=== PATIENT | female | born 1985 | race Caucasian/White ===

== ENCOUNTER 2016-05-25 09:00 | Outpatient (RCR) | payer MEDICAID ==
[~2016-05-25 09:00] MED LIST: ASPI-84; CYCL10TA9 PO; LEVO100T79 PO; LEVO125T6; MULT-608; OXYC-197 PO; PRD20T PO; TRAM-42 PO; TRAM50TA2 PO; TRM50T PO
[2016-05-25 09:15] LABS: BASOPHILS % (AUTO) 0 % (0-10); EOSINOPHILS # (AUTO) 0.1 10^3/uL (0.0-0.3); EOSINOPHILS % (AUTO) 2 % (0-10); LYMPHOCYTES # (AUTO) 1.3 X 10^3 (1.0-4.0); LYMPHOCYTES % (AUTO) 17 % (12-44); MEAN CORPUSCULAR HEMOGLOBIN 24 PG (25-34); MEAN CORPUSCULAR HGB CONC 33 G/DL (32-36); MEAN CORPUSCULAR VOLUME 74 FL (80-99); MEAN PLATELET VOLUME 11.1 FL (7.4-10.4); MONOCYTES # (AUTO) 0.5 X 10^3 (0.0-1.0); MONOCYTES % (AUTO) 6 % (0-12); NEUTROPHILS # (AUTO) 5.8 X 10^3 (1.8-7.8); NEUTROPHILS % (AUTO) 75 % (42-75); PLATELET COUNT 228 10^3/uL (130-400); RED BLOOD COUNT 6.76 10^6/uL (4.35-5.85); RED CELL DISTRIBUTION WIDTH 21.3 % (10.0-14.5); WHITE BLOOD COUNT 7.7 10^3/uL (4.3-11.0)
[2016-05-25 09:46] LABS: ALANINE AMINOTRANSFERASE 15 U/L (0-55); ALBUMIN 4.2 G/DL (3.2-4.5); ANION GAP 11 MMOL/L (5-14); ASPARTATE AMINO TRANSFERASE 13 U/L (5-34); BILIRUBIN,TOTAL 0.3 MG/DL (0.1-1.0); BLOOD UREA NITROGEN 6 MG/DL (7-18); BUN/CREATININE RATIO 6; CALCIUM 9.5 MG/DL (8.5-10.1); CARBON DIOXIDE 22 MMOL/L (21-32); CHLORIDE 104 MMOL/L (98-107); CREATININE SERUM 0.94 MG/DL (0.60-1.30); GFR ESTIMATED > 60; GLUCOSE 105 MG/DL (70-105); POTASSIUM 3.9 MMOL/L (3.6-5.0); SODIUM 137 MMOL/L (135-145); TOTAL PROTEIN 7.1 G/DL (6.4-8.2)
[2016-05-25 10:06] LABS: THYROID STIMULATING HORMONE 0.73 UIU/ML (0.35-4.94)
== END 2016-06-02 | disposition home or self-care (01) ==
LOC: ONC 09:00
PROVIDERS: ATTEND Internal Medicine Hematology & Oncology
DX: D45 Polycythemia vera (principal); E03.9 Hypothyroidism, unspecified; F17.210 Nicotine dependence, cigarettes, uncomplicated; Z79.899 Other long term (current) drug therapy
CPT/HCPCS: 36415; 80053; 82728; 84443; 85025; 99195; 99213

== ENCOUNTER 2016-07-20 14:09 | Outpatient (RCR) | payer MEDICAID ==
[2016-07-20 15:14] LABS: BASOPHILS % (AUTO) 0 % (0-10); EOSINOPHILS # (AUTO) 0.1 10^3/uL (0.0-0.3); EOSINOPHILS % (AUTO) 1 % (0-10); LYMPHOCYTES # (AUTO) 1.5 X 10^3 (1.0-4.0); LYMPHOCYTES % (AUTO) 15 % (12-44); MEAN CORPUSCULAR HEMOGLOBIN 23 PG (25-34); MEAN CORPUSCULAR HGB CONC 32 G/DL (32-36); MEAN CORPUSCULAR VOLUME 73 FL (80-99); MEAN PLATELET VOLUME 10.8 FL (7.4-10.4); MONOCYTES # (AUTO) 0.6 X 10^3 (0.0-1.0); MONOCYTES % (AUTO) 6 % (0-12); NEUTROPHILS # (AUTO) 7.9 X 10^3 (1.8-7.8); NEUTROPHILS % (AUTO) 78 % (42-75); PLATELET COUNT 240 10^3/uL (130-400); RED BLOOD COUNT 6.18 10^6/uL (4.35-5.85); RED CELL DISTRIBUTION WIDTH 19.8 % (10.0-14.5); WHITE BLOOD COUNT 10.1 10^3/uL (4.3-11.0)
[2016-08-31] MEDS ORDERED: OXYC-197 PO (09:01)
== END 2016-10-18 | disposition home or self-care (01) ==
LOC: ONC 14:09
PROVIDERS: ATTEND Internal Medicine Hematology & Oncology
DX: D45 Polycythemia vera (principal); E03.9 Hypothyroidism, unspecified; F17.210 Nicotine dependence, cigarettes, uncomplicated; Z79.899 Other long term (current) drug therapy
CPT/HCPCS: 36415; 84443; 85025; 99195

== ENCOUNTER 2016-08-31 07:48 | Emergency (ER) | payer MEDICAID ==
[~2016-08-31] VITALS: Ht 170.2 cm; Wt 78.9 kg
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
--- NOTE | 2016-08-31 09:00 | Diagnostic Imaging Report ---
INDICATION: Injury with pain FINDINGS: There is an obliquely oriented fracture through the mid to proximal shaft of the proximal phalanx of the third toe, it showed no convincing extension into the articular surface. No substantial angulation or displacement. Its middle and distal phalanx as well as metatarsal intact. The remaining osseous structures intact. IMPRESSION: Obliquely oriented and apparently extra-articular nondisplaced proximal phalanx fracture third toe. Dictated by: Dictated on workstation # [id number]
[2016-08-31] MEDS ORDERED: OXYC-197 PO (09:01)
[2016-08-31 09:10] VITALS: BP 141/96
== END 2016-08-31 09:13 | disposition home or self-care (01) ==
LOC: EDUNIT# 07:48 → ER 07:51
DX: S92.414A Nondisplaced fracture of proximal phalanx of right great toe, initial encounter for closed fracture (principal); F17.210 Nicotine dependence, cigarettes, uncomplicated; W21.9XXA Striking against or struck by unspecified sports equipment, initial encounter; Y99.8 Other external cause status
CPT/HCPCS: 73660; 99283

== ENCOUNTER 2016-12-30 08:06 | Emergency (ER) | payer MEDICAID ==
[~2016-12-30] VITALS: Ht 170.2 cm; Wt 78.9 kg
[2016-12-30 09:40] LABS: BASOPHILS % (AUTO) 0 % (0-10); EOSINOPHILS # (AUTO) 0.1 10^3/uL (0.0-0.3); EOSINOPHILS % (AUTO) 1 % (0-10); LYMPHOCYTES # (AUTO) 1.4 X 10^3 (1.0-4.0); LYMPHOCYTES % (AUTO) 10 % (12-44); MEAN CORPUSCULAR HEMOGLOBIN 23 PG (25-34); MEAN CORPUSCULAR HGB CONC 32 G/DL (32-36); MEAN CORPUSCULAR VOLUME 72 FL (80-99); MEAN PLATELET VOLUME 10.9 FL (7.4-10.4); MONOCYTES # (AUTO) 0.7 X 10^3 (0.0-1.0); MONOCYTES % (AUTO) 5 % (0-12); NEUTROPHILS % (AUTO) 85 % (42-75); PLATELET COUNT 219 10^3/uL (130-400); RED BLOOD COUNT 6.58 10^6/uL (4.35-5.85); WHITE BLOOD COUNT 14.3 10^3/uL (4.3-11.0)
[2016-12-30 10:02] LABS: ALANINE AMINOTRANSFERASE 16 U/L (0-55); ANION GAP 11 MMOL/L (5-14); ASPARTATE AMINO TRANSFERASE 21 U/L (5-34); BILIRUBIN,TOTAL 0.4 MG/DL (0.1-1.0); BLOOD UREA NITROGEN 6 MG/DL (7-18); BUN/CREATININE RATIO 8; CALCIUM 9.2 MG/DL (8.5-10.1); CARBON DIOXIDE 19 MMOL/L (21-32); CHLORIDE 106 MMOL/L (98-107); CREATININE SERUM 0.74 MG/DL (0.60-1.30); GFR ESTIMATED > 60; GLUCOSE 102 MG/DL (70-105); POTASSIUM 4.5 MMOL/L (3.6-5.0); SODIUM 136 MMOL/L (135-145); TOTAL PROTEIN 7.2 GM/DL (6.4-8.2)
[2016-12-30 10:09] LABS: BAND NEUTROPHILS 0 %; BASOPHILS % (MANUAL) 0 %; EOSINOPHILS % (MANUAL) 1 %; LYMPHOCYTES % (MANUAL) 8 %; NEUTROPHILS % (MANUAL) 81 %; REACTIVE LYMPHOCYTES 8 %
[2016-12-30 10:10] LABS: ANISOCYTOSIS MODERATE; POIKILOCYTOSIS MODERATE; SPHEROCYTES SLIGHT; STOMATOCYTES SLIGHT
[2016-12-30 10:11] LABS: MICROCYTOSIS MODERATE
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
[2016-12-30 10:58] LABS: BILIRUBIN,URINE NEGATIVE (NEGATIVE); KETONES,URINE NEGATIVE (NEGATIVE); LEUKOCYTE ESTERASE ,URINE 1+ (NEGATIVE); NITRITE,URINE NEGATIVE (NEGATIVE); PH,URINE 6 (5-9); PROTEIN,URINE NEGATIVE (NEGATIVE); UROBILINOGEN,URINE NORMAL (NORMAL)
--- NOTE | 2016-12-30 11:21 | Diagnostic Imaging Report ---
EXAM: LUMBAR SPINE - 2-3 VIEWS INDICATION: Low back pain. COMPARISON: Lumbar spine radiographs 09/24/2014. FINDINGS: There are 5 lumbar type vertebral bodies. Normal alignment. Vertebral body heights are maintained. No fractures. Cholecystectomy clips. No significant change. IMPRESSION: Negative lumbar spine radiographs. Dictated by: Dictated on workstation # [id number]
[2016-12-30 11:34] LABS: SQUAMOUS EPITHELIAL CELL,UR >50 /HPF
[2016-12-30] MEDS ORDERED: fLEXERIL (12:09)
[2016-12-30] MEDS ORDERED: NAPR-1070 PO (12:09)
[2016-12-30] MEDS ORDERED: KETOROLAC 60 MG/2 ML VIAL IM ONE (12:15)
[2016-12-30 12:28] VITALS: BP 129/69
== END 2016-12-30 12:29 | disposition home or self-care (01) ==
LOC: EDUNIT# 08:06 → ER 08:08
DX: M62.830 Muscle spasm of back (principal); F41.9 Anxiety disorder, unspecified; F32.9 Major depressive disorder, single episode, unspecified; E03.9 Hypothyroidism, unspecified; Z86.2 Personal history of diseases of the blood and blood-forming organs and certain disorders involving the immune mechanism; Z87.59 Personal history of other complications of pregnancy, childbirth and the puerperium; Z90.89 Acquired absence of other organs
CPT/HCPCS: 36415; 51701; 72100; 80053; 81000; 85007; 85027; 96372; 99284

== ENCOUNTER 2017-06-20 14:35 | Outpatient (RCR) | payer MEDICAID ==
[2017-04-12 10:53] LABS: BASOPHILS % (AUTO) 0 % (0-10); EOSINOPHILS # (AUTO) 0.2 10^3/uL (0.0-0.3); EOSINOPHILS % (AUTO) 3 % (0-10); HEMATOCRIT 49 % (35-52); HEMOGLOBIN 16.1 G/DL (11.5-16.0); LYMPHOCYTES # (AUTO) 1.4 X 10^3 (1.0-4.0); LYMPHOCYTES % (AUTO) 20 % (12-44); MEAN CORPUSCULAR HEMOGLOBIN 25 PG (25-34); MEAN CORPUSCULAR HGB CONC 33 G/DL (32-36); MEAN CORPUSCULAR VOLUME 76 FL (80-99); MEAN PLATELET VOLUME 10.5 FL (7.4-10.4); MONOCYTES # (AUTO) 0.4 X 10^3 (0.0-1.0); MONOCYTES % (AUTO) 5 % (0-12); NEUTROPHILS % (AUTO) 71 % (42-75); PLATELET COUNT 216 10^3/uL (130-400); RED BLOOD COUNT 6.39 10^6/uL (4.35-5.85)
[2017-04-12 11:13] LABS: ALANINE AMINOTRANSFERASE 25 U/L (0-55); ALBUMIN 3.9 GM/DL (3.2-4.5); ALKALINE PHOSPHATASE 62 U/L (40-136); BILIRUBIN,TOTAL 0.3 MG/DL (0.1-1.0); BUN/CREATININE RATIO 11; CALCIUM 9.3 MG/DL (8.5-10.1); CARBON DIOXIDE 24 MMOL/L (21-32); CHLORIDE 105 MMOL/L (98-107); CREATININE SERUM 0.83 MG/DL (0.60-1.30); GFR ESTIMATED > 60; GLUCOSE 115 MG/DL (70-105); POTASSIUM 4.4 MMOL/L (3.6-5.0); SODIUM 137 MMOL/L (135-145); TOTAL PROTEIN 7.3 GM/DL (6.4-8.2)
[~2017-06-20 14:35] MED LIST changes: +NAPR-1070 PO; +fLEXERIL
[2017-06-20 14:56] LABS: BASOPHILS % (AUTO) 0 % (0-10); EOSINOPHILS # (AUTO) 0.2 10^3/uL (0.0-0.3); EOSINOPHILS % (AUTO) 3 % (0-10); HEMATOCRIT 48 % (35-52); HEMOGLOBIN 15.7 G/DL (11.5-16.0); LYMPHOCYTES # (AUTO) 1.9 X 10^3 (1.0-4.0); LYMPHOCYTES % (AUTO) 27 % (12-44); MEAN CORPUSCULAR HEMOGLOBIN 26 PG (25-34); MEAN CORPUSCULAR HGB CONC 33 G/DL (32-36); MEAN CORPUSCULAR VOLUME 78 FL (80-99); MEAN PLATELET VOLUME 11.2 FL (7.4-10.4); MONOCYTES # (AUTO) 0.5 X 10^3 (0.0-1.0); MONOCYTES % (AUTO) 7 % (0-12); NEUTROPHILS # (AUTO) 4.6 X 10^3 (1.8-7.8); NEUTROPHILS % (AUTO) 64 % (42-75); PLATELET COUNT 247 10^3/uL (130-400); RED BLOOD COUNT 6.12 10^6/uL (4.35-5.85); RED CELL DISTRIBUTION WIDTH 18.5 % (10.0-14.5); WHITE BLOOD COUNT 7.1 10^3/uL (4.3-11.0)
[2017-06-20 15:13] LABS: ALANINE AMINOTRANSFERASE 25 U/L (0-55); ALBUMIN 4.2 GM/DL (3.2-4.5); ALKALINE PHOSPHATASE 70 U/L (40-136); BILIRUBIN,TOTAL 0.2 MG/DL (0.1-1.0); BUN/CREATININE RATIO 8; CALCIUM 9.4 MG/DL (8.5-10.1); CARBON DIOXIDE 20 MMOL/L (21-32); CHLORIDE 107 MMOL/L (98-107); CREATININE SERUM 0.84 MG/DL (0.60-1.30); GFR ESTIMATED > 60; GLUCOSE 117 MG/DL (70-105); POTASSIUM 3.8 MMOL/L (3.6-5.0); SODIUM 138 MMOL/L (135-145); TOTAL PROTEIN 7.5 GM/DL (6.4-8.2)
== END 2017-07-11 | disposition home or self-care (01) ==
LOC: ONC 14:35
PROVIDERS: ATTEND Internal Medicine Hematology & Oncology
DX: D45 Polycythemia vera (principal); E03.9 Hypothyroidism, unspecified; F17.210 Nicotine dependence, cigarettes, uncomplicated; Z79.899 Other long term (current) drug therapy
CPT/HCPCS: 36415; 80053; 82728; 84443; 85025; 99195

== ENCOUNTER 2018-01-03 10:01 | Outpatient (RCR) | payer MEDICAID ==
[~2018-01-03 10:01] MED LIST changes: -OXYC-197 PO; +OXYC1TAB87 PO
[2018-01-03 10:13] LABS: BASOPHILS % (AUTO) 0 % (0-10); EOSINOPHILS # (AUTO) 0.1 10^3/uL (0.0-0.3); EOSINOPHILS % (AUTO) 2 % (0-10); HEMATOCRIT 46 % (35-52); HEMOGLOBIN 15.1 G/DL (11.5-16.0); LYMPHOCYTES # (AUTO) 1.5 X 10^3 (1.0-4.0); LYMPHOCYTES % (AUTO) 17 % (12-44); MEAN CORPUSCULAR HEMOGLOBIN 25 PG (25-34); MEAN CORPUSCULAR HGB CONC 33 G/DL (32-36); MEAN CORPUSCULAR VOLUME 76 FL (80-99); MONOCYTES # (AUTO) 0.4 X 10^3 (0.0-1.0); MONOCYTES % (AUTO) 4 % (0-12); NEUTROPHILS # (AUTO) 6.7 X 10^3 (1.8-7.8); NEUTROPHILS % (AUTO) 77 % (42-75); PLATELET COUNT 251 10^3/uL (130-400); RED BLOOD COUNT 5.99 10^6/uL (4.35-5.85); RED CELL DISTRIBUTION WIDTH 21.1 % (10.0-14.5); WHITE BLOOD COUNT 8.7 10^3/uL (4.3-11.0)
== END 2018-01-28 | disposition home or self-care (01) ==
LOC: ONC 10:01
PROVIDERS: ATTEND Internal Medicine Hematology & Oncology
DX: D45 Polycythemia vera (principal); E03.9 Hypothyroidism, unspecified; F17.210 Nicotine dependence, cigarettes, uncomplicated; Z79.899 Other long term (current) drug therapy
CPT/HCPCS: 36415; 85025

== ENCOUNTER 2018-04-18 10:31 | Outpatient (RCR) | payer MEDICAID ==
[2018-02-14 14:06] LABS: BASOPHILS % (AUTO) 0 % (0-10); EOSINOPHILS # (AUTO) 0.2 10^3/uL (0.0-0.3); EOSINOPHILS % (AUTO) 3 % (0-10); HEMATOCRIT 46 % (35-52); HEMOGLOBIN 15.4 G/DL (11.5-16.0); LYMPHOCYTES # (AUTO) 1.4 X 10^3 (1.0-4.0); LYMPHOCYTES % (AUTO) 18 % (12-44); MEAN CORPUSCULAR HEMOGLOBIN 27 PG (25-34); MEAN CORPUSCULAR HGB CONC 34 G/DL (32-36); MEAN CORPUSCULAR VOLUME 81 FL (80-99); MEAN PLATELET VOLUME 10.5 FL (7.4-10.4); MONOCYTES # (AUTO) 0.3 X 10^3 (0.0-1.0); MONOCYTES % (AUTO) 3 % (0-12); NEUTROPHILS # (AUTO) 5.8 X 10^3 (1.8-7.8); NEUTROPHILS % (AUTO) 76 % (42-75); PLATELET COUNT 348 10^3/uL (130-400); RED BLOOD COUNT 5.69 10^6/uL (4.35-5.85); WHITE BLOOD COUNT 7.6 10^3/uL (4.3-11.0)
[2018-02-14 14:32] LABS: ALANINE AMINOTRANSFERASE 26 U/L (0-55); ALBUMIN 4.2 GM/DL (3.2-4.5); ALKALINE PHOSPHATASE 68 U/L (40-136); BILIRUBIN,TOTAL 0.3 MG/DL (0.1-1.0); BUN/CREATININE RATIO 7; CALCIUM 9.6 MG/DL (8.5-10.1); CARBON DIOXIDE 21 MMOL/L (21-32); CHLORIDE 105 MMOL/L (98-107); GFR ESTIMATED > 60; GLUCOSE 144 MG/DL (70-105); POTASSIUM 3.6 MMOL/L (3.6-5.0); SODIUM 139 MMOL/L (135-145); TOTAL PROTEIN 7.3 GM/DL (6.4-8.2)
[2018-04-18 11:00] LABS: BASOPHILS % (AUTO) 0 % (0-10); EOSINOPHILS # (AUTO) 0.1 10^3/uL (0.0-0.3); EOSINOPHILS % (AUTO) 2 % (0-10); HEMATOCRIT 50 % (35-52); HEMOGLOBIN 16.4 G/DL (11.5-16.0); LYMPHOCYTES # (AUTO) 1.4 X 10^3 (1.0-4.0); LYMPHOCYTES % (AUTO) 21 % (12-44); MEAN CORPUSCULAR HEMOGLOBIN 30 PG (25-34); MEAN CORPUSCULAR HGB CONC 33 G/DL (32-36); MEAN CORPUSCULAR VOLUME 93 FL (80-99); MEAN PLATELET VOLUME 10.6 FL (7.4-10.4); MONOCYTES # (AUTO) 0.4 X 10^3 (0.0-1.0); MONOCYTES % (AUTO) 6 % (0-12); NEUTROPHILS # (AUTO) 4.8 X 10^3 (1.8-7.8); NEUTROPHILS % (AUTO) 71 % (42-75); PLATELET COUNT 192 10^3/uL (130-400); RED BLOOD COUNT 5.42 10^6/uL (4.35-5.85); RED CELL DISTRIBUTION WIDTH 23.5 % (10.0-14.5); WHITE BLOOD COUNT 6.8 10^3/uL (4.3-11.0)
[2018-04-18 11:21] LABS: ALANINE AMINOTRANSFERASE 27 U/L (0-55); ALBUMIN 4.1 GM/DL (3.2-4.5); ALKALINE PHOSPHATASE 82 U/L (40-136); BILIRUBIN,TOTAL 0.3 MG/DL (0.1-1.0); BUN/CREATININE RATIO 10; CALCIUM 9.4 MG/DL (8.5-10.1); CARBON DIOXIDE 22 MMOL/L (21-32); CHLORIDE 106 MMOL/L (98-107); CREATININE SERUM 0.83 MG/DL (0.60-1.30); GFR ESTIMATED > 60; GLUCOSE 97 MG/DL (70-105); SODIUM 140 MMOL/L (135-145); TOTAL PROTEIN 7.2 GM/DL (6.4-8.2)
== END 2018-05-15 | disposition home or self-care (01) ==
LOC: ONC 10:31
PROVIDERS: ATTEND Internal Medicine Hematology & Oncology
DX: D45 Polycythemia vera (principal); E03.9 Hypothyroidism, unspecified; F17.210 Nicotine dependence, cigarettes, uncomplicated; Z79.899 Other long term (current) drug therapy
CPT/HCPCS: 36415; 80053; 84443; 85025; 99195; 99213

== ENCOUNTER 2019-04-15 09:05 | Emergency (ER) | payer SELFPAY ==
[~2019-04-15] VITALS: Ht 157 cm; Wt 87.0 kg
--- NOTE | 2019-04-15 09:33 | ED Chest Pain ---
General Chief Complaint: Abdominal/GI Problems Stated Complaint: BACK AND CHEST PAIN Nursing Triage Note: ARRIVED VIA AMB TO ROOM 05 WITH COMPLAINTS OF WAKING UP WITH EPIGASTRIC PAIN FOR THE LAST TWO MORNINGS. Nursing Sepsis Screen: No Definite Risk Source: patient Exam Limitations: no limitations (CARMEN BERNSTEIN MED STUDENT) History of Present Illness Date Seen by Provider: Apr 15, 2019 Time Seen by Provider: 09:18 Initial Comments Pt complains of 3 days of inferior chest pain that she states radiates through her back to her xiphoid. She characterized the pain as constant, sharp and tearing and associates onset with shortness of air. The pain 10/10 in the morning and gets better throughout the day, usually a 5/10 before bed. Past medical history is notable for polycythemia vera and hyperthyroidism, for which she takes no medication. Timing/Duration: 2-3 days Severity/Quality: severe, sharp, tearing Location: epigastric, back Radiation: no radiation Activities at Onset: other (pain occurs with morning activities ) Prior CP/Workup: no prior chest pain Modifying Factors: worse with palpation Associated Symptoms: No edema, No fever/chills, No headache, No nausea/vomiting, No rash; shortness of breath (CARMEN BERNSTEIN MED STUDENT) Timing/Duration: 2-3 days Severity/Quality: severe, pressure, sharp Location: epigastric, back Radiation: epigastric Prior CP/Workup: no prior chest pain ASA po BOOM STORAGE: No NTG SL BOOM STORAGE: No (DIMAS PEÑA MD) Allergies and Home Medications Allergies Coded Allergies: hydrocodone (Verified Adverse Reaction, Unknown, DIZZYNESS, BLACK OUT...NO PROBLEMS WITH PERCOCET, 07/10/09) Home Medications No Active Prescriptions or Reported Meds Patient Home Medication List Home Medication List Reviewed: Yes (CARMEN BERNSTEIN MED STUDENT) Home Medication List Reviewed: Yes (DIMAS PEÑA MD) Review of Systems Review of Systems Constitutional: No chills, No diaphoresis, No fever, No malaise EENTM: No Blurred Vision, No Eye Pain, No Ear Pain, No Mouth Pain, No Nose Pain, No Throat Pain Respiratory: Denies Cough, Denies Orthopnea; Shortness of Air Cardiovascular: Chest Pain; Denies Edema, Denies Palpitations Gastrointestinal: Denies Abdomen Distended, Denies Abdominal Pain, Denies Constipated, Denies Diarrhea, Denies Nausea, Denies Vomiting Genitourinary: Denies Burning, Denies Discharge, Denies Incontinence, Denies Pain Musculoskeletal: see HPI, back pain; No joint pain Skin: No lesions, No lumps, No rash Psychiatric/Neurological: Anxiety, Depressed; Denies Headache, Denies Seizure Endocrine: Intolerance to Cold; Denies Unexplained Weight Gain, Denies Unexplaned Weight Loss Hematologic/Lymphatic: Denies Anemia; Other (polycythemia vera ) (CARMEN BERNSTEIN MED STUDENT) Respiratory: Denies Cough; Shortness of Air; Denies Wheezing Gastrointestinal: Abdominal Pain Musculoskeletal: back pain (DIMAS PEÑA MD) All Other Systems Reviewed Negative Unless Noted: Yes (DIMAS PEÑA MD) Past Cguszfx-Llsbqb-Pcdrxq Hx Past Med/Social Hx: Reviewed Nursing Past Med/Soc Hx (DIMAS PEÑA MD) Patient Social History Alcohol Use: Occasionally Uses Recreational Drug Use: No Smoking Status: Current Everyday Smoker Type Used: Cigarettes 2nd Hand Smoke Exposure: No Recent Foreign Travel: No Contact w/Someone Who Travel: No Recent Infectious Disease Expo: No Recent Hopitalizations: No (CARMEN BERNSTEIN MED STUDENT) Seasonal Allergies Seasonal Allergies: Yes (CARMEN BERNSTEIN MED STUDENT) Past Medical History Surgeries: Yes Section, Gallbladder, Orthopedic, Tonsillectomy Respiratory: No Cardiac: No Neurological: No Reproductive Disorders: No Genitourinary: No Gastrointestinal: No Musculoskeletal: No Endocrine: Yes Hypothyroidsim Cancer: No Psychosocial: Yes Anxiety, Depression Integumentary: No Blood Disorders: Yes (POLYCYTHEMIA VERA) Adverse Reaction/Blood Tranf: No (CARMEN BERNSTEIN MED STUDENT) Family Medical History Reviewed Nursing Family Hx (DIMAS PEÑA MD) Cancer (father) (CARMEN BERNSTEIN MED STUDENT) No Pertinent Family Hx (DIMAS PEÑA MD) Physical Exam Vital Signs Vital Signs - First Documented 04/15/19 09:05 Temp 36.7 Pulse 79 Resp 16 B/P (MAP) 149/97 (114) Pulse Ox 96 O2 Delivery Room Air (DIMAS PEÑA MD) Vital Signs Capillary Refill : Less Than 3 Seconds (CARMEN BERNSTEIN MED STUDENT) Height, Weight, BMI Height: 5'7.00" Weight: 174lbs. oz. 78.392053yh; 35.00 BMI Method:Stated General Appearance: No Apparent Distress, WD/WN HEENT: PERRL/EOMI, TMs Normal, Normal ENT Inspection, Pharynx Normal Neck: Non Tender, Supple Respiratory: Chest Non Tender, Lungs Clear, Normal Breath Sounds, No Accessory Muscle Use, No Respiratory Distress Cardiovascular: Regular Rate, Rhythm, No Edema, No Gallop, No Murmur, Normal Peripheral Pulses Gastrointestinal: Non Tender, Soft Extremity: No Calf Tenderness, No Pedal Edema Neurologic/Psychiatric: Alert, Oriented x3 Skin: Normal Color, Warm/Dry Lymphatic: No Adenopathy (anterior/posterior cervical, supra/infraclavicular ) (CARMEN BERNSTEIN,MED STUDENT) General Appearance: No Apparent Distress, WD/WN HEENT: PERRL/EOMI, Pharynx Normal Neck: Non Tender, Supple Respiratory: Lungs Clear, Normal Breath Sounds Cardiovascular: Regular Rate, Rhythm, No Murmur Gastrointestinal: Non Tender, Soft Extremity: Normal Range of Motion, Non Tender, No Calf Tenderness, No Pedal Edema Neurologic/Psychiatric: Alert, Oriented x3 Skin: Normal Color, Warm/Dry (DIMAS PEÑA MD) Progress/Results/Core Measures Results/Orders Lab Results Laboratory Tests Test 04/15/19 09:20 Range/Units White Blood Count 8.1 4.3-11.0 10^3/uL Red Blood Count 6.25 H 4.35-5.85 10^6/uL Hemoglobin 16.8 H 11.5-16.0 G/DL Hematocrit 51 35-52 % Mean Corpuscular Volume 82 80-99 FL Mean Corpuscular Hemoglobin 27 25-34 PG Mean Corpuscular Hemoglobin Concent 33 32-36 G/DL Red Cell Distribution Width 19.6 H 10.0-14.5 % Platelet Count 189 130-400 10^3/uL Mean Platelet Volume 11.6 H 7.4-10.4 FL Neutrophils (%) (Auto) 79 H 42-75 % Lymphocytes (%) (Auto) 13 12-44 % Monocytes (%) (Auto) 5 0-12 % Eosinophils (%) (Auto) 3 0-10 % Basophils (%) (Auto) 0 0-10 % Neutrophils # (Auto) 6.4 1.8-7.8 X 10^3 Lymphocytes # (Auto) 1.1 1.0-4.0 X 10^3 Monocytes # (Auto) 0.4 0.0-1.0 X 10^3 Eosinophils # (Auto) 0.2 0.0-0.3 10^3/uL Basophils # (Auto) 0.0 0.0-0.1 10^3/uL D-Dimer <= 0.27 0.00-0.49 UG/ML Sodium Level 140 135-145 MMOL/L Potassium Level 3.8 3.6-5.0 MMOL/L Chloride Level 107 98-107 MMOL/L Carbon Dioxide Level 20 L 21-32 MMOL/L Anion Gap 13 5-14 MMOL/L Blood Urea Nitrogen 8 7-18 MG/DL Creatinine 0.84 0.60-1.30 MG/DL Estimat Glomerular Filtration Rate > 60 BUN/Creatinine Ratio 10 Glucose Level 160 H 70-105 MG/DL Calcium Level 9.1 8.5-10.1 MG/DL Corrected Calcium 9.0 8.5-10.1 MG/DL Total Bilirubin 0.3 0.1-1.0 MG/DL Aspartate Amino Transf (AST/SGOT) 20 5-34 U/L Alanine Aminotransferase (ALT/SGPT) 23 0-55 U/L Alkaline Phosphatase 88 40-136 U/L Troponin I < 0.028 <0.028 NG/ML C-Reactive Protein High Sensitivity 1.31 H 0.00-0.50 MG/DL Total Protein 6.9 6.4-8.2 GM/DL Albumin 4.1 3.2-4.5 GM/DL Lipase 20 8-78 U/L Free Thyroxine 0.70 0.70-1.48 NG/DL TSH [place] Testing 15.53 H 0.35-4.94 UIU/ML Serum Test, Qualitative NEGATIVE NEGATIVE (DIMAS PEÑA MD) My Orders Orders - DIMAS PEÑA MD Chest Pa/Lat (2 View) (04/15/19 09:47) Ekg Tracing (04/15/19 09:47) Cbc With Automated Diff (04/15/19 09:47) Comprehensive Metabolic Panel (04/15/19 09:47) Hs C Reactive Protein (04/15/19 09:47) Fibrin Degradation Products (04/15/19 09:47) Hcg,Qualitative Serum (04/15/19 09:47) Lipase (04/15/19 09:47) Thyroid Analyzer (04/15/19 09:47) Troponin I (04/15/19 09:47) Lidocaine 2% Viscous 15 Ml (Xylocaine Vi (04/15/19 10:00) Antacid Suspension (Mylanta Suspension (04/15/19 10:00) Lactated Ringers (Lr 1000 Ml Iv Solution (04/15/19 09:47) Ed Iv/Invasive Line Start (04/15/19 09:47) Famotidine Injection (Pepcid Injection) (04/15/19 10:13) Sucralfate Tablet (Carafate Tablet) (04/15/19 10:15) Free T4 (Free Thyroxine) (04/15/19 09:20) Ct Chest Wo (04/15/19 10:42) (DIMAS PEÑA MD) Medications Given in ED Current Medications Medications Dose Ordered Sig/Bryce Route Start Time Stop Time Status Last Admin Dose Admin Al Hydrox/Mg Hydrox/Simethicone 30 ml ONCE ONCE PO 04/15/19 10:00 04/15/19 10:01 DC 04/15/19 09:57 30 ML Lidocaine HCl 15 ml ONCE ONCE PO 04/15/19 10:00 04/15/19 10:01 DC 04/15/19 09:57 15 ML Sucralfate 1 gm ONCE ONCE PO 04/15/19 10:15 04/15/19 10:16 DC 04/15/19 10:30 1 GM (DIMAS PEÑA MD) Vital Signs/I&O 04/15/19 09:05 Temp 36.7 Pulse 79 Resp 16 B/P (MAP) 149/97 (114) Pulse Ox 96 O2 Delivery Room Air (DIMAS PEÑA MD) Blood Pressure Mean: 114 POS Progress Progress Note : Time: 09:41 Progress Note Seen and evaluated. Ordered CBC w/ b-HCG, CMP with lipase, TSH, d dimer. Administering 1L NS and GI cocktail. Concern for PE d/t history of polycythemia vera, will r/o with CT angiogram pending d dimer results. (CARMEN BERNSTEIN,MED STUDENT) Progress Note : Progress Note I have seen and evaluated the patient and agree with above except as indicated. Have directed the plan of care. IV, labs, chest x-ray, it is 1 L bolus and GI cocktail ordered. Monitor patient. Carafate and Pepcid [address] chest ordered after x-ray results noted. 1150: I did discuss the results of labs and chest x-ray with Dr. Riley. He would like to see her in the cancer center is she needs phlebotomy due to the polycythemia. I will write prescription for levothyroxine 75 g daily for a month so that she can get restarted on that and they will continue to follow through the cancer center. She does have carinal lymph node of unknown etiology that we'll need to be followed over time and that can be followed to the cancer center as well. I will send a copy of the chart to Dr. Riley as well as Dr. Trotter. She does have what appears to be some reflux symptoms and may need upper endoscopy. We will initiate outpatient omeprazole an d have her follow up with the surgeon listed her over choice. Discharged to cancer center for further workup. Patient agrees to plan. (DIMAS PEÑA MD) Diagnostic Imaging Diagonstic Imaging: Xray Plain Films/CT/US/NM/MRI: chest Comments [facility]. POS [place], [place] POS NAME: BREANNE VELARDE [employer] REC#: [id number] PT STATUS: REG ER : 1985 PHYSICIAN: DIMAS PEÑA MD ADMIT DATE: 04/15/19/ER Draft POSDate of Exam:04/15/19 CHEST PA/LAT (2 VIEW) INDICATION: Chest pain. COMPARISON: Thoracic spine radiographs from 09/24/2014. FINDINGS: Frontal and lateral radiographic views of the chest were obtained and show normal cardiac silhouette and pulmonary vasculature. The lungs show diffuse micronodular opacities scattered throughout. These have a calcified appearance. A similar appearance is also noted on 09/24/2014, consistent with probable chronic granulomatous disease. Note is, however, made of a more prominent 1 cm nodular opacity within the lateral right midlung field. There is no focal consolidation, large effusion, or pneumothorax. The osseous structures show no gross acute abnormalities. IMPRESSION: 1. No evidence of failure or focal infiltrate. 2. Diffuse calcified micronodular opacities, consistent with old granulomatous disease. 3. A more dominant 1 cm nodular opacity within the lateral right mid lung field is of uncertain chronicity or benignity. Further characterization with a noncontrast CT chest is recommended and could be performed on a nonemergent basis. Dictated on workstation # [id number] Dict: 04/15/19 1028 Trans: 04/15/19 1038 [id number] Interpreted by: LYLY KENNY MD Electronically signed by: Diagonstic Imaging: CT Plain Films/CT/US/NM/MRI: chest Comments [facility]. POS [place], [place] POS NAME: BREANNE VELARDE [employer] REC#: [id number] PT STATUS: REG ER : 1985 PHYSICIAN: DIMAS PEÑA MD ADMIT DATE: 04/15/19/ER Draft POSDate of Exam:04/15/19 CT CHEST WO PROCEDURE: CT chest without contrast. TECHNIQUE: Multiple contiguous axial images were obtained through the chest without the use of intravenous contrast. Auto Exposure Controls were utilized during the CT exam to meet ALARA standards for radiation dose reduction. INDICATION: Chest pain. COMPARISON: Radiographs from the same date. FINDINGS: Mild mediastinal adenopathy is present, this includes a mildly enlarged precarinal lymph node measuring 1.9 x 1.1 cm. Evaluation for hilar adenopathy is limited secondary to lack of intravenous contrast. The heart is at the upper limits of normal in size. No significant aneurysmal dilatation of the thoracic aorta. No pericardial effusion. No pleural effusion. Innumerable calcified granuloma are again noted scattered throughout the lungs bilaterally. A 1.1 cm calcified granuloma is identified within the right upper lobe peripherally which accounts for the nodular density noted on prior radiographs. Linear interstitial opacities are present within the right lower lobe. No additional dense focal pulmonary consolidation. The lungs bilaterally demonstrate diffuse groundglass appearance throughout. No pneumothorax. Cholecystectomy. Borderline hepatosplenomegaly. Visualized upper abdomen is otherwise unremarkable. No acute osseous abnormality. IMPRESSION: 1. Evidence of chronic granulomatous disease. Previously questioned 1.1 cm nodular density within the peripheral right midlung is shown to relate to an additional benign calcified granuloma. 2. Diffuse groundglass appearance of the lungs bilaterally, favored related to expiratory phase of imaging with associated right basilar atelectasis. 3. Borderline hepatosplenomegaly. 4. Mild mediastinal adenopathy, of uncertain etiology or significance. 5. Cholecystectomy. 6. Additional findings, as above. Dictated on workstation # [id number] Dict: 04/15/19 1110 Trans: 04/15/19 1123 [id number] Interpreted by: PINA MORELAND MD Electronically signed by: (DIMAS PEÑA MD) Departure Impression Primary Impression: Chest pain Qualified Codes: R07.9 - Chest pain, unspecified Additional Impressions: Polycythemia vera Hypothyroidism Qualified Codes: E03.9 - Hypothyroidism, unspecified Disposition: 01 HOME, SELF-CARE Condition: Stable Departure-Patient Inst. Decision time for Depature: 12:09 (DIMAS PEÑA MD) Referrals: RITESH TROTTER RICHARD A DO (PCP/Family) Primary Care Physician DOMENICA RILEY Patient Instructions: Acute Abdomen (Belly Pain), Adult (DC), Polycythemia Vera (DC), Chest Pain (DC) Add. Discharge Instructions: All discharge instructions reviewed with patient and/or family. Voiced understanding. Take medications as directed. billing department supervisor your prescription for the levothyroxine and start today. Go directly to the cancer center for further evaluation. Return for worse pain, fever, vomiting, weakness, breathing problems or other concerns as needed. You may initiate [id number] omeprazole 20 mg daily and take that for the next 2-6 weeks. You may call and make appointment with Dr. Rin deutsch or recheck and further evaluation and possible evaluation for endoscopy if indicated. Scripts Levothyroxine Sodium (Levothyroxine Sodium) 75 Mcg Tablet 75 MCG PO DAILY, #30 TAB Prov: DIMAS PEÑA MD 04/15/19 Copy Copies To 1: DOMENICA RILEY Copies To 2: RITESH TROTTER DREW,MED STUDENT Apr 15, 2019 09:33 POSSDIMAS MANCINI MD Apr 15, 2019 11:39 POS
[2019-04-15] MEDS ORDERED: LACTATED RINGERS 1,000 ML IV STA (09:47)
[2019-04-15 09:56] LABS: BASOPHILS % (AUTO) 0 % (0-10); EOSINOPHILS # (AUTO) 0.2 10^3/uL (0.0-0.3); EOSINOPHILS % (AUTO) 3 % (0-10); HEMATOCRIT 51 % (35-52); HEMOGLOBIN 16.8 G/DL (11.5-16.0); LYMPHOCYTES # (AUTO) 1.1 X 10^3 (1.0-4.0); LYMPHOCYTES % (AUTO) 13 % (12-44); MEAN CORPUSCULAR HEMOGLOBIN 27 PG (25-34); MEAN CORPUSCULAR HGB CONC 33 G/DL (32-36); MEAN CORPUSCULAR VOLUME 82 FL (80-99); MEAN PLATELET VOLUME 11.6 FL (7.4-10.4); MONOCYTES # (AUTO) 0.4 X 10^3 (0.0-1.0); MONOCYTES % (AUTO) 5 % (0-12); NEUTROPHILS # (AUTO) 6.4 X 10^3 (1.8-7.8); NEUTROPHILS % (AUTO) 79 % (42-75); PLATELET COUNT 189 10^3/uL (130-400); RED CELL DISTRIBUTION WIDTH 19.6 % (10.0-14.5); WHITE BLOOD COUNT 8.1 10^3/uL (4.3-11.0)
[2019-04-15] MEDS ORDERED: LIDOCAINE 2% VISCOUS 15 ML UDC PO ONE (10:00)
[2019-04-15] MEDS ORDERED: ANTACID SUSP 30 ML UDC (MYLANTA) PO ONE (10:00)
[2019-04-15 10:08] LABS: ALANINE AMINOTRANSFERASE 23 U/L (0-55); ALBUMIN 4.1 GM/DL (3.2-4.5); ALKALINE PHOSPHATASE 88 U/L (40-136); BILIRUBIN,TOTAL 0.3 MG/DL (0.1-1.0); BUN/CREATININE RATIO 10; CALCIUM 9.1 MG/DL (8.5-10.1); CARBON DIOXIDE 20 MMOL/L (21-32); CHLORIDE 107 MMOL/L (98-107); CREATININE SERUM 0.84 MG/DL (0.60-1.30); GFR ESTIMATED > 60; GLUCOSE 160 MG/DL (70-105); LIPASE 20 U/L (8-78); POTASSIUM 3.8 MMOL/L (3.6-5.0); SODIUM 140 MMOL/L (135-145); TOTAL PROTEIN 6.9 GM/DL (6.4-8.2)
[2019-04-15] MEDS ORDERED: FAMOTIDINE 20MG/2ML IV (PEPCID) IV STA (10:13)
[2019-04-15] MEDS ORDERED: SUCRALFATE 1 GM (CARAFATE) TAB PO ONE (10:15)
[2019-04-15 10:28] LABS: TSH (THYROID ANALYZER) 15.53 UIU/ML (0.35-4.94)
--- NOTE | 2019-04-15 10:38 | Diagnostic Imaging Report ---
INDICATION: Chest pain. COMPARISON: Thoracic spine radiographs from 09/24/2014. FINDINGS: Frontal and lateral radiographic views of the chest were obtained and show normal cardiac silhouette and pulmonary vasculature. The lungs show diffuse micronodular opacities scattered throughout. These have a calcified appearance. A similar appearance is also noted on 09/24/2014, consistent with probable chronic granulomatous disease. Note is, however, made of a more prominent 1 cm nodular opacity within the lateral right midlung field. There is no focal consolidation, large effusion, or pneumothorax. The osseous structures show no gross acute abnormalities. IMPRESSION: 1. No evidence of failure or focal infiltrate. 2. Diffuse calcified micronodular opacities, consistent with old granulomatous disease. 3. A more dominant 1 cm nodular opacity within the lateral right mid lung field is of uncertain chronicity or benignity. Further characterization with a noncontrast CT chest is recommended and could be performed on a nonemergent basis. Dictated by: Dictated on workstation # [id number]
--- NOTE | 2019-04-15 11:24 | Diagnostic Imaging Report ---
PROCEDURE: CT chest without contrast. TECHNIQUE: Multiple contiguous axial images were obtained through the chest without the use of intravenous contrast. Auto Exposure Controls were utilized during the CT exam to meet ALARA standards for radiation dose reduction. INDICATION: Chest pain. COMPARISON: Radiographs from the same date. FINDINGS: Mild mediastinal adenopathy is present, this includes a mildly enlarged precarinal lymph node measuring 1.9 x 1.1 cm. Evaluation for hilar adenopathy is limited secondary to lack of intravenous contrast. The heart is at the upper limits of normal in size. No significant aneurysmal dilatation of the thoracic aorta. No pericardial effusion. No pleural effusion. Innumerable calcified granuloma are again noted scattered throughout the lungs bilaterally. A 1.1 cm calcified granuloma is identified within the right upper lobe peripherally which accounts for the nodular density noted on prior radiographs. Linear interstitial opacities are present within the right lower lobe. No additional dense focal pulmonary consolidation. The lungs bilaterally demonstrate diffuse groundglass appearance throughout. No pneumothorax. Cholecystectomy. Borderline hepatosplenomegaly. Visualized upper abdomen is otherwise unremarkable. No acute osseous abnormality. IMPRESSION: 1. Evidence of chronic granulomatous disease. Previously questioned 1.1 cm nodular density within the peripheral right midlung is shown to relate to an additional benign calcified granuloma. 2. Diffuse groundglass appearance of the lungs bilaterally, favored related to expiratory phase of imaging with associated right basilar atelectasis. 3. Borderline hepatosplenomegaly. 4. Mild mediastinal adenopathy, of uncertain etiology or significance. 5. Cholecystectomy. 6. Additional findings, as above. Dictated by: Dictated on workstation # [id number]
--- NOTE | 2019-04-15 11:34 | NUR ---
PT STATES MEDS HAS NOT HELPED. MED STUDENT IN WITH PT AT THIS TIME.
[2019-04-15] MEDS ORDERED: LEVO75TA6 PO (12:16)
[2019-04-15 12:22] VITALS: BP 151/98
--- NOTE | 2019-04-15 12:22 | NUR ---
PT IS GOING DIRECTLY TO THE CANCER CENTER AFTER DISCHARGE. CANCER CENTER IS AWARE AND WILL BE DISCHARGED WITH HER IV FOR USE AT THE CANCER CENTER.
== END 2019-04-15 12:22 | disposition home or self-care (01) ==
LOC: EDUNIT# 09:05 → ER 09:07
DX: R07.9 Chest pain, unspecified (principal); D45 Polycythemia vera; E03.9 Hypothyroidism, unspecified; F17.210 Nicotine dependence, cigarettes, uncomplicated; F41.9 Anxiety disorder, unspecified; F32.9 Major depressive disorder, single episode, unspecified; Z88.5 Allergy status to narcotic agent; Z90.89 Acquired absence of other organs
CPT/HCPCS: 36415; 71046; 71250; 80053; 83690; 84439; 84443; 84484; 84703; 85025; 85379; 86141; 93005

== ENCOUNTER 2019-05-13 09:19 | Outpatient (RCR) | payer MEDICAID, OTHER ==
[~2019-05-13 09:19] MED LIST changes: +LEVO75TA6 PO
[2019-05-13 09:59] LABS: BASOPHILS % (AUTO) 0 % (0-10); EOSINOPHILS # (AUTO) 0.1 10^3/uL (0.0-0.3); EOSINOPHILS % (AUTO) 1 % (0-10); HEMATOCRIT 49 % (35-52); HEMOGLOBIN 16.1 G/DL (11.5-16.0); LYMPHOCYTES % (AUTO) 17 % (12-44); MEAN CORPUSCULAR HEMOGLOBIN 27 PG (25-34); MEAN CORPUSCULAR HGB CONC 33 G/DL (32-36); MEAN CORPUSCULAR VOLUME 82 FL (80-99); MEAN PLATELET VOLUME 10.7 FL (7.4-10.4); MONOCYTES # (AUTO) 0.3 X 10^3 (0.0-1.0); MONOCYTES % (AUTO) 6 % (0-12); NEUTROPHILS # (AUTO) 4.4 X 10^3 (1.8-7.8); NEUTROPHILS % (AUTO) 76 % (42-75); PLATELET COUNT 194 10^3/uL (130-400); RED CELL DISTRIBUTION WIDTH 19.3 % (10.0-14.5); WHITE BLOOD COUNT 5.8 10^3/uL (4.3-11.0)
[2019-05-13 10:11] LABS: ALANINE AMINOTRANSFERASE 25 U/L (0-55); ALBUMIN 4.2 GM/DL (3.2-4.5); ALKALINE PHOSPHATASE 85 U/L (40-136); BILIRUBIN,TOTAL 0.3 MG/DL (0.1-1.0); BUN/CREATININE RATIO 9; CALCIUM 9.1 MG/DL (8.5-10.1); CARBON DIOXIDE 22 MMOL/L (21-32); CHLORIDE 106 MMOL/L (98-107); CREATININE SERUM 0.88 MG/DL (0.60-1.30); GFR ESTIMATED > 60; GLUCOSE 97 MG/DL (70-105); POTASSIUM 4.2 MMOL/L (3.6-5.0); SODIUM 137 MMOL/L (135-145); TOTAL PROTEIN 7.2 GM/DL (6.4-8.2)
== END 2019-07-14 | disposition home or self-care (01) ==
LOC: ONC 09:19
PROVIDERS: ATTEND Internal Medicine Hematology & Oncology
DX: D45 Polycythemia vera (principal); E03.9 Hypothyroidism, unspecified; F17.210 Nicotine dependence, cigarettes, uncomplicated; Z79.899 Other long term (current) drug therapy
CPT/HCPCS: 80053; 82728; 84443; 85025; 99195

== ENCOUNTER → 2019-09-25 | Outpatient (CLI) | payer OTHER ==
[2019-09-25 14:25] LABS: BASOPHILS % (AUTO) 0 % (0-10); EOSINOPHILS # (AUTO) 0.2 10^3/uL (0.0-0.3); EOSINOPHILS % (AUTO) 2 % (0-10); HEMATOCRIT 46 % (35-52); HEMOGLOBIN 14.8 G/DL (11.5-16.0); LYMPHOCYTES # (AUTO) 1.4 X 10^3 (1.0-4.0); LYMPHOCYTES % (AUTO) 14 % (12-44); MEAN CORPUSCULAR HEMOGLOBIN 25 PG (25-34); MEAN CORPUSCULAR HGB CONC 32 G/DL (32-36); MEAN CORPUSCULAR VOLUME 78 FL (80-99); MEAN PLATELET VOLUME 10.3 FL (7.4-10.4); MONOCYTES # (AUTO) 0.4 X 10^3 (0.0-1.0); MONOCYTES % (AUTO) 4 % (0-12); NEUTROPHILS # (AUTO) 8.5 X 10^3 (1.8-7.8); NEUTROPHILS % (AUTO) 81 % (42-75); PLATELET COUNT 235 10^3/uL (130-400); RED CELL DISTRIBUTION WIDTH 22.7 % (10.0-14.5); WHITE BLOOD COUNT 10.6 10^3/uL (4.3-11.0)
[2019-09-25 14:42] LABS: ALANINE AMINOTRANSFERASE 19 U/L (0-55); ALKALINE PHOSPHATASE 81 U/L (40-136); BILIRUBIN,TOTAL 0.3 MG/DL (0.1-1.0); BUN/CREATININE RATIO 11; CALCIUM 9.2 MG/DL (8.5-10.1); CARBON DIOXIDE 26 MMOL/L (21-32); CHLORIDE 106 MMOL/L (98-107); CREATININE SERUM 0.84 MG/DL (0.60-1.30); GFR ESTIMATED > 60; GLUCOSE 127 MG/DL (70-105); POTASSIUM 3.6 MMOL/L (3.6-5.0); SODIUM 140 MMOL/L (135-145); TOTAL PROTEIN 7.1 GM/DL (6.4-8.2)
== END ==
LOC: ONC 14:05 → EDSTATUS 14:44
PROVIDERS: ATTEND Internal Medicine Hematology & Oncology
DX: D45 Polycythemia vera (principal)
CPT/HCPCS: 80053; 82728; 84443; 85025; 99213

== ENCOUNTER → 2019-12-19 | Outpatient (CLI) | payer SELFPAY | LOC: ONC 11:17 | PROVIDERS: ATTEND Internal Medicine Hematology & Oncology | DX: D45 Polycythemia vera (principal); E03.9 Hypothyroidism, unspecified; F17.200 Nicotine dependence, unspecified, uncomplicated | CPT/HCPCS: 99213 ==

== ENCOUNTER → 2020-05-06 | Outpatient (CLI) | payer SELFPAY ==
[2020-05-06 14:07] LABS: BASOPHILS % (AUTO) 0 % (0-10); EOSINOPHILS # (AUTO) 0.1 10^3/uL (0.0-0.3); EOSINOPHILS % (AUTO) 1 % (0-10); HEMATOCRIT 52 % (35-52); HEMOGLOBIN 16.5 g/dL (11.5-16.0); LYMPHOCYTES % (AUTO) 19 % (12-44); MEAN CORPUSCULAR HEMOGLOBIN 26 pg (25-34); MEAN CORPUSCULAR HGB CONC 32 g/dL (32-36); MEAN CORPUSCULAR VOLUME 82 fL (80-99); MEAN PLATELET VOLUME 10.6 fL (9.0-12.2); MONOCYTES # (AUTO) 0.6 10^3/uL (0.0-1.0); MONOCYTES % (AUTO) 5 % (0-12); NEUTROPHILS # (AUTO) 7.9 10^3/uL (1.8-7.8); NEUTROPHILS % (AUTO) 74 % (42-75); PLATELET COUNT 267 10^3/uL (130-400); WHITE BLOOD COUNT 10.7 10^3/uL (4.3-11.0)
[2020-05-06 14:31] LABS: ALANINE AMINOTRANSFERASE 27 U/L (0-55); ALBUMIN 4.2 GM/DL (3.2-4.5); ALKALINE PHOSPHATASE 76 U/L (40-136); BILIRUBIN,TOTAL 0.3 MG/DL (0.1-1.0); BUN/CREATININE RATIO 7; CALCIUM 9.7 MG/DL (8.5-10.1); CARBON DIOXIDE 26 MMOL/L (21-32); CHLORIDE 104 MMOL/L (98-107); CREATININE SERUM 0.81 MG/DL (0.60-1.30); GFR ESTIMATED > 60; GLUCOSE 86 MG/DL (70-105); POTASSIUM 3.8 MMOL/L (3.6-5.0); SODIUM 138 MMOL/L (135-145); TOTAL PROTEIN 7.5 GM/DL (6.4-8.2)
== END ==
LOC: ONC 13:52
PROVIDERS: ATTEND Internal Medicine Hematology & Oncology
DX: D45 Polycythemia vera (principal); E03.9 Hypothyroidism, unspecified; F17.200 Nicotine dependence, unspecified, uncomplicated
CPT/HCPCS: 80053; 82728; 84443; 85025; 99195; G0463

== ENCOUNTER 2020-08-13 13:06 | Outpatient (RCR) | payer SELFPAY ==
[2020-08-12 09:52] LABS: BASOPHILS % (AUTO) 0 % (0-10); EOSINOPHILS # (AUTO) 0.1 10^3/uL (0.0-0.3); EOSINOPHILS % (AUTO) 2 % (0-10); HEMATOCRIT 50 % (35-52); HEMOGLOBIN 15.6 g/dL (11.5-16.0); LYMPHOCYTES # (AUTO) 1.3 10^3/uL (1.0-4.0); LYMPHOCYTES % (AUTO) 18 % (12-44); MEAN CORPUSCULAR HEMOGLOBIN 28 pg (25-34); MEAN CORPUSCULAR HGB CONC 31 g/dL (32-36); MEAN CORPUSCULAR VOLUME 89 fL (80-99); MEAN PLATELET VOLUME 10.6 fL (9.0-12.2); MONOCYTES # (AUTO) 0.5 10^3/uL (0.0-1.0); MONOCYTES % (AUTO) 7 % (0-12); NEUTROPHILS # (AUTO) 5.1 10^3/uL (1.8-7.8); NEUTROPHILS % (AUTO) 73 % (42-75); PLATELET COUNT 244 10^3/uL (130-400); WHITE BLOOD COUNT 6.9 10^3/uL (4.3-11.0)
[2020-08-12 10:15] LABS: ALANINE AMINOTRANSFERASE 22 U/L (0-55); ALBUMIN 4.2 GM/DL (3.2-4.5); ALKALINE PHOSPHATASE 85 U/L (40-136); BILIRUBIN,TOTAL 0.4 MG/DL (0.1-1.0); BUN/CREATININE RATIO 10; CALCIUM 9.5 MG/DL (8.5-10.1); CARBON DIOXIDE 23 MMOL/L (21-32); CHLORIDE 104 MMOL/L (98-107); CREATININE SERUM 0.82 MG/DL (0.60-1.30); GFR ESTIMATED > 60; GLUCOSE 122 MG/DL (70-105); POTASSIUM 4.1 MMOL/L (3.6-5.0); SODIUM 137 MMOL/L (135-145); TOTAL PROTEIN 7.2 GM/DL (6.4-8.2)
== END 2020-11-10 | disposition home or self-care (01) ==
LOC: ONC 13:06
PROVIDERS: ATTEND Internal Medicine Hematology & Oncology
DX: D45 Polycythemia vera (principal); E03.9 Hypothyroidism, unspecified; F17.200 Nicotine dependence, unspecified, uncomplicated
CPT/HCPCS: 80053; 82728; 84443; 85025; G0463; 99195; 99213

== ENCOUNTER 2020-12-16 08:57 | Outpatient (RCR) | payer SELFPAY ==
[2020-12-16 09:08] LABS: BASOPHILS % (AUTO) 0 % (0-10); EOSINOPHILS # (AUTO) 0.1 10^3/uL (0.0-0.3); EOSINOPHILS % (AUTO) 1 % (0-10); HEMATOCRIT 50 % (35-52); HEMOGLOBIN 15.8 g/dL (11.5-16.0); LYMPHOCYTES # (AUTO) 1.6 10^3/uL (1.0-4.0); LYMPHOCYTES % (AUTO) 13 % (12-44); MEAN CORPUSCULAR HEMOGLOBIN 27 pg (25-34); MEAN CORPUSCULAR HGB CONC 32 g/dL (32-36); MEAN CORPUSCULAR VOLUME 84 fL (80-99); MEAN PLATELET VOLUME 11.2 fL (9.0-12.2); MONOCYTES # (AUTO) 0.6 10^3/uL (0.0-1.0); MONOCYTES % (AUTO) 5 % (0-12); NEUTROPHILS # (AUTO) 10.2 10^3/uL (1.8-7.8); NEUTROPHILS % (AUTO) 81 % (42-75); PLATELET COUNT 239 10^3/uL (130-400); WHITE BLOOD COUNT 12.6 10^3/uL (4.3-11.0)
[2020-12-16 09:30] LABS: ALBUMIN 4.2 GM/DL (3.2-4.5); BILIRUBIN,TOTAL 0.4 MG/DL (0.1-1.0); CALCIUM 9.6 MG/DL (8.5-10.1); CREATININE SERUM 0.9 MG/DL (0.60-1.30); POTASSIUM 4.2 MMOL/L (3.6-5.0); TOTAL PROTEIN 7.5 GM/DL (6.4-8.2)
== END 2021-03-16 | disposition home or self-care (01) ==
LOC: ONC 08:57
PROVIDERS: ATTEND Internal Medicine Hematology & Oncology
DX: D45 Polycythemia vera (principal); E03.9 Hypothyroidism, unspecified; F17.200 Nicotine dependence, unspecified, uncomplicated
CPT/HCPCS: 80053; 82728; 84443; 85025; 99195; G0463

== ENCOUNTER 2021-03-17 10:02 | Outpatient (RCR) | payer SELFPAY ==
[2021-03-17 10:08] LABS: BASOPHILS % (AUTO) 0 % (0-10); EOSINOPHILS # (AUTO) 0.1 10^3/uL (0.0-0.3); EOSINOPHILS % (AUTO) 1 % (0-10); HEMATOCRIT 49 % (35-52); HEMOGLOBIN 15.2 g/dL (11.5-16.0); LYMPHOCYTES # (AUTO) 1.5 10^3/uL (1.0-4.0); LYMPHOCYTES % (AUTO) 21 % (12-44); MEAN CORPUSCULAR HEMOGLOBIN 27 pg (25-34); MEAN CORPUSCULAR HGB CONC 31 g/dL (32-36); MEAN CORPUSCULAR VOLUME 85 fL (80-99); MEAN PLATELET VOLUME 10.1 fL (9.0-12.2); MONOCYTES # (AUTO) 0.5 10^3/uL (0.0-1.0); MONOCYTES % (AUTO) 8 % (0-12); NEUTROPHILS # (AUTO) 4.9 10^3/uL (1.8-7.8); NEUTROPHILS % (AUTO) 69 % (42-75); PLATELET COUNT 247 10^3/uL (130-400)
[2021-03-17 10:44] LABS: BILIRUBIN,TOTAL 0.3 MG/DL (0.1-1.0); CALCIUM 9.6 MG/DL (8.5-10.1); CREATININE SERUM 0.78 MG/DL (0.60-1.30); POTASSIUM 4.1 MMOL/L (3.6-5.0); TOTAL PROTEIN 7.4 GM/DL (6.4-8.2)
== END 2021-04-30 | disposition home or self-care (01) ==
LOC: ONC 10:02
PROVIDERS: ATTEND Internal Medicine Hematology & Oncology
DX: D45 Polycythemia vera (principal); E03.9 Hypothyroidism, unspecified; F17.200 Nicotine dependence, unspecified, uncomplicated; E66.9 Obesity, unspecified; Z79.82 Long term (current) use of aspirin; Z79.899 Other long term (current) drug therapy; Z68.32 Body mass index [BMI] 32.0-32.9, adult
CPT/HCPCS: 80053; 82728; 84443; 85025; 99195; G0463